=== PATIENT | male | born 1980 | race Two or more races ===

== ENCOUNTER 2019-08-10 21:23 | Emergency (ER) | payer OTHER ==
[~2019-08-10] VITALS: Ht 180.3 cm; Wt 117.9 kg
[~2019-08-10 21:23] MED LIST: LOSARTAN-HCTZ1 EACH
[2019-08-10] MEDS ORDERED: DUTOPROL 25-121 EACH (21:46)
[2019-08-10] MEDS ORDERED: AZOR 10-20 MG1 EACH (21:49)
[2019-08-11] MEDS ORDERED: ZYNCOF 20-400120 ML PO (02:17)
[2019-08-11] MEDS ORDERED: ALBUTEROL2.5 MG/3 M IH (02:17)
== END 2019-08-11 02:23 | disposition home or self-care (01) ==
LOC: ER 21:23
DX: J45.998 Other asthma (principal)

== ENCOUNTER 2020-02-13 04:12 | Emergency (ER) | payer OTHER ==
[~2020-02-13] VITALS: Ht 180.3 cm; Wt 117.9 kg
[~2020-02-13 04:12] MED LIST changes: +ALBUTEROL2.5 MG/3 M IH; +AZOR 10-20 MG1 EACH; +DUTOPROL 25-121 EACH; +ZYNCOF 20-400120 ML PO
[2020-02-13] MEDS ORDERED: INTESTINEX680 M1 PO (08:06)
[2020-02-13] MEDS ORDERED: LEVSIN/SL0.125 MG SL (08:06)
== END 2020-02-13 08:25 | disposition home or self-care (01) ==
LOC: ER 04:12
DX: R10.84 Generalized abdominal pain (principal); R50.9 Fever, unspecified; R19.7 Diarrhea, unspecified

== ENCOUNTER 2021-04-12 23:25 | Emergency (ER) | payer OTHER ==
[~2021-04-12] VITALS: Ht 180.3 cm; Wt 117.9 kg
[~2021-04-12 23:25] MED LIST changes: +INTESTINEX680 M1 PO; +LEVSIN/SL0.125 MG SL
[2021-04-12] MEDS ORDERED: LOTREL 5-10 MG1 CAP (23:44)
[2021-04-13] MEDS ORDERED: ZYRTEC10 MG PO (06:05)
[2021-04-13] MEDS ORDERED: PROAIR RESPICL90 MCG IH (06:05)
[2021-04-13] MEDS ORDERED: MEDROLPACK PO (06:05)
[2021-04-13] MEDS ORDERED: MUCINEX DM ER1 EAC1 PO (06:05)
== END 2021-04-13 06:30 | disposition home or self-care (01) ==
LOC: ER 23:25
DX: J45.998 Other asthma (principal); J06.9 Acute upper respiratory infection, unspecified

== ENCOUNTER 2021-05-12 21:50 | Emergency (ER) | payer OTHER ==
[~2021-05-12] VITALS: Ht 180.3 cm; Wt 127.0 kg
[~2021-05-12 21:50] MED LIST changes: +LOTREL 5-10 MG1 CAP; +MEDROLPACK PO; +MUCINEX DM ER1 EAC1 PO; +PROAIR RESPICL90 MCG IH; +ZYRTEC10 MG PO
[2021-05-12] MEDS ORDERED: FORTAMET500 MG (22:12)
[2021-05-12] MEDS ORDERED: PERCOCET 5-3251 EACH PO (23:39)
== END 2021-05-13 | disposition home or self-care (01) ==
LOC: ER 21:50
DX: S81.822A Laceration with foreign body, left lower leg, initial encounter (principal); V98.8XXA Other specified transport accidents, initial encounter; Y93.89 Activity, other specified; Y92.488 Other paved roadways as the place of occurrence of the external cause; Y99.8 Other external cause status